=== PATIENT | male | born 1935 | race African-American/Black ===

== ENCOUNTER 2019-03-11 15:52 | Emergency (ER) | payer MEDICARE, OTHER ==
[~2019-03-11] VITALS: Ht 180.3 cm; Wt 94.3 kg
--- NOTE | 2019-03-11 15:52 | NUR ---
ED Nurse Note: PT BROUGHT IN BY [facility]HA FROM HOME. AOX2 - ORIENTED TO SELF AND PLACE. PER EMS, PT'S LINE CREWMAN CALLED [phone] DUE TO PT BEING MORE ALTERED THAN NORMAL. EMS STATES THEY WERE TOLD THAT CAREGIVER INFORMED THEM THAT THE PT WAS USING WORDS THAT WERE NOT NORMALLY WORDS HE WOULD SAY. LINE CREWMAN ALSO STATED TO EMS THAT SHE FELT HE WAS MORE LETHARGIC THAN NORMAL. AT BEDSIDE, PT IS CALM AND COOPERATIVE AND ANSWERING QUESTIONS APPROPRIATELY. BP 177/89 - DR CARRILLO AWARE AND AT BEDSIDE FOR EVALUATION.
[2019-03-11 16:10] VITALS: BP 177/89
--- NOTE | 2019-03-11 16:26 | NUR ---
ED Nurse Note: URINE COLLECTED AND SENT TO LAB.
[2019-03-11 16:40] LABS: ANION GAP 10 mmol/L (5-15); BLOOD UREA NITROGEN 14 mg/dL (7-18); CALCIUM 9.7 MG/DL (8.5-10.1); CARBON DIOXIDE 29 MMOL/L (21-32); CHLORIDE 106 MMOL/L (98-107); POTASSIUM 3.9 MMOL/L (3.5-5.1); SODIUM 145 MMOL/L (136-145)
[2019-03-11 16:41] LABS: EOSINOPHILS % (AUTO) 2.5 % (0.0-3.0); HEMATOCRIT 48.1 % (42.0-52.0); MEAN CORPUSCULAR VOLUME 97 FL (80-99); MONOCYTES % (AUTO) 9.2 % (1.0-10.0); NEUTROPHILS % (AUTO) 41.4 % (45.0-75.0); PLATELET COUNT 208 K/UL (150-450); RED BLOOD COUNT 4.95 M/UL (4.70-6.10); RED CELL DISTRIBUTION WIDTH 12.2 % (11.6-14.8); WHITE BLOOD COUNT 4.7 K/UL (4.8-10.8)
--- NOTE | 2019-03-11 16:42 | NUR ---
ED Nurse Note: PT TO CT VIA THEO.
[2019-03-11 16:54] LABS: ALANINE AMINOTRANSFERASE 21 U/L (12-78); ALBUMIN 3.9 G/DL (3.4-5.0); ALBUMIN/GLOBULIN RATIO 0.8 (1.0-2.7); ALKALINE PHOSPHATASE 108 U/L (46-116); ASPARTATE AMINO TRANSFERASE 19 U/L (15-37); BILIRUBIN,TOTAL 0.8 MG/DL (0.2-1.0); CKMB 1.9 NG/ML (0.0-3.6); CREATINE KINASE 145 U/L (26-308)
--- NOTE | 2019-03-11 16:55 | NUR ---
ED Nurse Note: PT BACK FROM CT VIA THEO.
[2019-03-11] MEDS ORDERED: Aspirin EC 325mg tab ORAL SCH (17:15)
--- NOTE | 2019-03-11 17:17 | Emergency Room Report ---
History of Present Illness General Chief Complaint: Altered Level of Consciousness Source: EMS Present Illness HPI 83-year-old male presenting with altered mental status as per caregiver at home starting yesterday. Patient alert and oriented x2 at this time history obtained from patient in addition to family friend who is caring for patient. Patient normally active alert and oriented x3 since yesterday patient has been slurring his words not finishing his sentences and "not acting right" patient's blood pressure was elevated by EMS as per degreasing wheel operator but is normally normotensive. Patient did not have any signs of fevers chills nausea vomiting diarrhea increased urination or bowel changes as per degreasing wheel operator. per degreasing wheel operator he did not sustain any falls Allergies: Coded Allergies: No Known Allergies (Unverified , 03/11/19) UNABLE TO ASSESS (Unverified , 09/20/14) Nursing Documentation-[facility] Past Medical History: No History, Except For Hx Hypertension: Yes Hx Diabetes: Yes Hx Cerebrovascular Accident: Yes Review of Systems All Other Systems: negative except mentioned in HPI Physical Exam Vital Signs Date Time Temp Pulse Resp B/P (MAP) Pulse Ox O2 Delivery O2 Flow Rate FiO2 03/11/19 15:43 99.0 78 14 183/105 (131) 98 Room Air Sp02 EP Interpretation: reviewed, normal General Appearance: no apparent distress, alert, GCS 15, non-toxic Head: normocephalic, atraumatic Eyes: bilateral eye normal inspection, bilateral eye PERRL ENT: hearing grossly normal, normal pharynx, no angioedema, normal voice Neck: full range of motion, supple/symm/no masses Respiratory: chest non-tender, lungs clear, normal breath sounds, speaking full sentences Cardiovascular #1: regular rate, rhythm, no edema Cardiovascular #2: 2+ radial (R), 2+ radial (L), 2+ dorsalis pedis (R), 2+ dorsalis pedis (L) Gastrointestinal: normal bowel sounds, non tender, soft, non-distended, no guarding, no rebound Rectal: deferred Genitourinary: normal inspection, no CVA tenderness Musculoskeletal: back normal, gait/station normal, normal range of motion, non- tender, calf tenderness Neurologic: alert, responsive, motor strength/tone normal, sensory intact, speech normal Psychiatric: judgement/insight normal, memory normal, mood/affect normal, no suicidal/homicidal ideation Lymphatic: no adenopathy Medical Decision Making ER Course 83-year-old gentleman presents with altered mental status slurred speech from home found to be hypertensive. Differential includes CVA out of window, hypertensive crisis, infection sepsis, intracranial hemorrhage, metabolic derangement, or MO Patient found to have urinary tract infection started on antibiotics Patient also found to be hypertensive improved with hydralazine Patient requiring inpatient admission to further evaluate mental status changes for possible CVA out of TPA window, as per insurance patient transferred to accepting facility via ALS to telemetry monitored bed. EKG Diagnostic Results EP Interpretation: Normal sinus rhythm nonspecific ST changes baseline poor baseline Rate: normal ST Segments: no acute changes Rhythm Strip Diag. Results EP Interpretation: yes Rate: 76 Rhythm: NSR, no PVC's Chest X-Ray Diagnostic Results Chest X-Ray Diagnostic Results : Indication: Other - AMS, hypertensive EP Interpretation: Yes Interpretation: no effusion, no pneumothorax, no acute cardiopulmonary disease Impression: No acute disease CT/MRI/US Diagnostic Results CT/MRI/US Diagnostic Results : Impression Procedure: CT Head no Contrast EXAM: CT Head Without Intravenous Contrast CLINICAL HISTORY: AMS TECHNIQUE: Axial computed tomography images of the head brain without intravenous contrast. CTDI is 62.7 mGy and DLP is 1394.9 mGy-cm. One or more of the following dose reduction techniques were used: automated exposure control, adjustment of the mA and or kV according to patient size, use of iterative reconstruction technique. COMPARISON: 09 20 14 FINDINGS: Brain: No intracranial hemorrhage or mass effect within limits due to streak artifact from metallic densities embedded in the frontal scalp. Advanced involutional and microvascular ischemic changes. Calcification of skull base arteries Bones joints: Chronic right zygomatic arch deformity. No acute fracture. Soft tissues: As above. Metallic densities also embedded in the right malar region. Sinuses: Unremarkable as visualized. No acute sinusitis. Mastoid air cells: Unremarkable as visualized. No mastoid effusion. IMPRESSION: No acute intracranial process within limits due to metallic streak artifact. Advanced involutional and microvascular ischemic changes Dictated By: Lj Aldridge MD Electronically Signed By: Lj Aldridge MD Signed Date/Time 03/11/19 1804 CC: Naga Arthur M.D. Last Vital Signs Date Time Temp Pulse Resp B/P (MAP) Pulse Ox O2 Delivery O2 Flow Rate FiO2 03/11/19 16:10 76 12 Room Air 03/11/19 16:10 98.8 177/89 99 Disposition: DISC/XFER TO A [facility] Condition: Stable Referrals: NOT CHOSEN HUSSEIN/,REFERRING (PCP) Naga Arthur M.D. Mar 11, 2019 17:17
[2019-03-11 17:27] LABS: APPEARANCE,URINE CLOUDY; BILIRUBIN, URINE NEGATIVE (NEGATIVE); COLOR,URINE YELLOW; GLUCOSE, URINE (UA) NEGATIVE (NEGATIVE); KETONES,URINE 1+ (NEGATIVE); LEUKOCYTE ESTERASE ,URINE 3+ (NEGATIVE); NITRITE,URINE NEGATIVE (NEGATIVE); PH,URINE 5 (4.5-8.0); PROTEIN,URINE 2+ (NEGATIVE); UROBILINOGEN,URINE NORMAL MG/DL (0.0-1.0)
[2019-03-11 17:42] VITALS: BP 169/74
--- NOTE | 2019-03-11 17:55 | Diagnostic Imaging Report ---
EXAM: CT Head Without Intravenous Contrast CLINICAL HISTORY: AMS TECHNIQUE: Axial computed tomography images of the head brain without intravenous contrast. CTDI is 62.7 mGy and DLP is 1394.9 mGy-cm. One or more of the following dose reduction techniques were used: automated exposure control, adjustment of the mA and or kV according to patient size, use of iterative reconstruction technique. COMPARISON: 09 20 14 FINDINGS: Brain: No intracranial hemorrhage or mass effect within limits due to streak artifact from metallic densities embedded in the frontal scalp. Advanced involutional and microvascular ischemic changes. Calcification of skull base arteries Bones joints: Chronic right zygomatic arch deformity. No acute fracture. Soft tissues: As above. Metallic densities also embedded in the right malar region. Sinuses: Unremarkable as visualized. No acute sinusitis. Mastoid air cells: Unremarkable as visualized. No mastoid effusion. IMPRESSION: No acute intracranial process within limits due to metallic streak artifact. Advanced involutional and microvascular ischemic changes
[2019-03-11 18:07] VITALS: BP 140/71
[2019-03-11] MEDS ORDERED: METOPROLOL TART25 MG ORAL (18:11)
[2019-03-11] MEDS ORDERED: LOSARTAN POTASS50 MG ORAL (18:11)
[2019-03-11] MEDS ORDERED: ADALAT20 MG ORAL (18:11)
[2019-03-11] MEDS ORDERED: SPIRONOLACTONE100 MG ORAL (18:11)
[2019-03-11] MEDS ORDERED: GABAPENTIN300 MG ORAL (18:11)
[2019-03-11] MEDS ORDERED: PLAVIX75 MG ORAL (18:11)
[2019-03-11] MEDS ORDERED: FLOMAX0.4 MG ORAL (18:11)
[2019-03-11] MEDS ORDERED: LEVETIRACETAM500 MG ORAL (18:11)
[2019-03-11] MEDS ORDERED: METFORMIN HCL1000 M1 ORAL (18:11)
--- NOTE | 2019-03-11 18:36 | Diagnostic Imaging Report ---
EXAM: XR Chest, 1 View CLINICAL HISTORY: AMS TECHNIQUE: Frontal view of the chest. COMPARISON: No relevant prior studies available. FINDINGS: Lungs: No consolidation. Pleural space: Chronically elevated left hemidiaphragm. No pneumothorax. Heart: Unremarkable. No cardiomegaly. Mediastinum: Tortuous thoracic aorta. There is prominent contour of the rightward mediastinum, the region of the ascending aorta. Possible aneurysm. Bones joints: Degenerative changes of the shoulders and spine. IMPRESSION: No evidence of acute pulmonary disease. Prominent ascending aorta. Possible aneurysm.
--- NOTE | 2019-03-11 19:14 | NUR ---
HAND-OFF: REPORT GIVEN TO REHAN CAO.
--- NOTE | 2019-03-11 19:14 | NUR ---
Nasim quiñones in [facility] - 03/11/19 at 1915 by RACHEL HAND-OFF: REPORT GIVEN TO REHAN CAO.
--- NOTE | 2019-03-11 19:15 | NUR ---
Note undone in EDM - 03/11/19 at 1918 by RACHEL ED Nurse Note: PT ADVISED THAT SHE WILL BE TRANSFERRING TO [facility]. PT REFUSES TO GO TO THAT HOSPITAL. PT SPOKE WITH HER INSURANCE WHO STATES THEY ARE UNABLE TO TRANSFER HER ANYWHERE ELSE. PT WANTS TO LEAVE AMA. PRIMARY RN AND DR EL AT BEDSIDE EXPLAINING RISKS AND CONSEQUENCES INVOLVED IN LEAVING THE HOSPITAL AT THIS TIME WELL THE BENEFITS OF CONTINUED TREATMENT AND HOSPITALIZATION. PT VERBALIZES UNDERSTANDING BUT STILL REFUSES TO TRANSFER. PT SIGNED AMA FORM WITNESSED BY PRIMARY RN. IV AND ID WRISTBAND REMOVED. PT WALKED OUT OF ER WITH STEADY GAIT AND ALL BELONGINGS ACCOMPANIED BY DAUGHTER.
--- NOTE | 2019-03-11 19:20 | NUR ---
ED Nurse Note: Recieved report to resume care, pt in bed awake and alert, confused and disoriented, pt oriented to name only, is on cardiac monitoring, v/s stable, iv site patent, will resume care as ordered and prepare for admit or transfer.
[2019-03-11 20:00] VITALS: BP 142/88
--- NOTE | 2019-03-11 21:20 | NUR ---
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
[2019-03-11 21:45] VITALS: BP 144/83
[2019-03-11 21:50] VITALS: BP 144/83
--- NOTE | 2019-03-11 21:50 | NUR ---
ED Nurse Note: Pt being transferred via ambulance through [id number], report given along with all info and transfer forms, pt leaving awake and alert, iv site patent, nad noted during transport.
--- NOTE | 2019-03-14 14:06 | Cardiology Report ---
APPROVED REPORT EKG Measurement Heart [id number] [id number] Normal sinus rhythm Nonspecific T wave abnormality Abnormal ECG
== END 2019-03-11 22:50 | disposition short-term general hospital (02) ==
LOC: EDBD 15:52 → EMR 16:10
DX: R41.82 Altered mental status, unspecified (principal); R47.81 Slurred speech; I10 Essential (primary) hypertension; E11.9 Type 2 diabetes mellitus without complications; Z86.73 Personal history of transient ischemic attack (TIA), and cerebral infarction without residual deficits; N39.0 Urinary tract infection, site not specified
CPT/HCPCS: 36415; 70450; 71045; 80053; 81003; 82550; 82553; 83605; 84484; 85025; 87040; 87086; 87181; 93005; 96374; 99284; J0360